=== PATIENT | male | born 1990 | race Caucasian/White ===

== ENCOUNTER → 2016-12-01 | Outpatient (CLI) | payer BC ==
[~2016-12-01] MED LIST: LORTAB 5/500 501 TAB PO
[2016-12-01 19:06] LABS: BUN 19 mg/dL (7-18)
[2016-12-01 19:08] LABS: GFR (ESTIMATED) 72 ML/MIN (>60)
[2016-12-01 19:19] LABS: HEMOGLOBIN 15.7 g/dL (14.1-18.0); LYMPH # 1.9 K/mm3 (0.7-4.5); LYMPH % 28.5 % (10-50)
== END ==
LOC: LAB 18:15
PROVIDERS: Nurse Practitioner Family
DX: R07.9 Chest pain, unspecified (principal); I10 Essential (primary) hypertension

== ENCOUNTER → 2017-04-25 | Outpatient (CLI) | payer BC ==
--- NOTE | 2017-04-25 13:04 | RADIOLOGY REPORT PS360 ---
EXAM: LUMBAR SPINE 5 VIEWS HISTORY: CHRISTA LOW BACK PAIN,HEMATURIA ORDERING PHYSICIAN: Ashlyn PEARSON PATIENT AGE: 26 years COMPARISON: None FINDINGS: Normal alignment. No fracture or dislocation. Schmorl's nodes are present along the superior and inferior endplate of L1 and the superior endplate of L2 with mild degenerative disc disease at T12-L3 and L4-L5. Small endplate spurs are present. There is slight loss of height anteriorly of L1 which is likely chronic. Mild facet arthritic changes are present at L5-S1. There is straightening of the lumbar lordosis which may be due to patient positioning or muscle spasm IMPRESSION: Spondylosis of the lumbar spine with mild wedging of L1 which may be old. Schmorl's nodes are present at L1 and L3.
--- NOTE | 2017-04-25 13:54 | RADIOLOGY REPORT PS360 ---
KUB (SINGLE VIEW) HISTORY: CHRISTA LOW BACK PAIN,HEMATURIA ORDERING PHYSICIAN: Ashlyn PEARSON PATIENT AGE: 26 years COMPARISON: None FINDINGS: The bowel gas pattern is unremarkable. No obvious obstruction.. No abnormal calcifications are evident. No obvious renal or ureteral calculi.. No acute bony anomalies evident. IMPRESSION: Negative KUB, no acute finding
== END ==
LOC: RAD 11:49
DX: M54.5 Low back pain (principal); R31.9 Hematuria, unspecified